=== PATIENT | female | born 1955 | race Caucasian/White ===

== ENCOUNTER 2022-10-22 09:47 | Emergency (ER) | payer MEDICARE, SELFPAY ==
[2022-10-22 09:53] VITALS: BP 144/85; PULSE 94; RESP 20; TEMP 37.1; O2SAT 97; BMI 25.4
--- NOTE | 2022-10-22 10:26 | XR_ITS ---
WS: [id number] KUB, AP view, 10/22/2022 Clinical Data: RLQ pain Comparison: None. Findings: The liver may be enlarged. There is a right abdominal soft tissue mass compressing the ascending colo n. No bowel obstruction is seen. There are calcifications in the true pelvis which may be uterine leiomy clemencia. There is a large amount of fecal material in the colon. Impression: 1. Right abdominal mass which may represent liver enlargement. 2. Pelvic calcifications which may be uterine leiomyomas.
--- NOTE | 2022-10-22 10:35 | ED_ITS ---
Documented by User: Cristel Montalvo PA-C 10/22/22 17:09 HPI - Abdominal Pain General: Chief Complaint: Abdominal Pain Stated Complaint: abd pain Time Seen by Provider: 10/22/22 10:21 Source: patient Mode of arrival: ambulatory Limitations: no limitations History of Present Illness: 67-year-old female with a history of hypertension presents to the ER today for right-sided abdominal pain x2 months. Patient reports this significantly worsened over the last several days. Patient was seen by her PCP and they ordered an ultrasound however it has not been scheduled yet. Patient has not had any recent lab work done. Patient does report a history of some chronic kidney disease however reports she was last told that it had significantly improved and was at greater than 50%. Patient reports this abdominal pain is located in the right mid to lower quadrant of the abdomen. She reports it is a stabbing, sharp pain that then radiates into the umbilicus. Patient has never had any abdominal surgeries. She reports she has a history of 1 vaginal delivery and 1 miscarriage but no other abdominal or female issues. Patient reports she has not had a Pap in the last 5 years. Patient denies any fever or chills. She reports some nausea but no vomiting. Patient has not taken anything for pain at this time. She reports she is somewhat constipated however that is chronic for her. Denies any blood in her stool. She did take some mineral oil this morning. Review of Systems General: Reports: 10 or more systems reviewed and unremarkable except in HPI and below Physical Exam Const: COMMON NORMALS: average body habitus, patient oriented x3, no limitations, healthy appearing, alert and well nourished HENMT: COMMON NORMALS: normocephalic, atraumatic, external ears normal, Normal nasal mucous membranes and turbinates present and moist oral mucous membranes HEAD & SCALP: normocephalic and atraumatic NOSE: Normal nasal mucous membranes and turbinates present EXTERNAL EAR: Yes external ears normal Eye: COMMON NORMALS: conjunctivae normal CONJUNCTIVA: Yes conjunctivae normal Resp: COMMON NORMALS: normal respiratory effort, No retractions and clear to auscultation bilaterally AUSCULTATION: clear to auscultation bilaterally Cardio: COMMON NORMALS: regular rate, regular rhythm and No murmurs present (Cardio) RATE: regular rate RHYTHM: regular rhythm GI: COMMON NORMALS: Normal to inspection, nondistended, normoactive bowel sounds present, Soft to palpation and No hepatosplenomegaly present PALPATION: Yes Soft to palpation, Yes Tenderness to palpation present (GI) Details: RLQ and RUQ, Yes Guarding due to palpation present (GI) in the RLQ, Yes No hepatosplenomegaly present and No Ascites present : COMMON NORMALS: Yes no CVA tenderness BLADDER/KIDNEY EXAM: Yes no CVA tenderness Back/Pelvis: COMMON NORMALS: no CVA tenderness Extremity: COMMON NORMALS: full ROM and no pedal edema Neuro: COMMON NORMALS: patient oriented x3 SENSORIUM/ORIENTATION: Yes alert Psych: COMMON NORMALS: mental status grossly normal, Normal thought process present and cooperative THOUGHT PROCESS: Normal thought process present Skin: COMMON NORMALS: no rashes or lesions noted GENERAL SKIN EXAM: no rashes or lesions noted Course ED course: Patient presents to the ER today for worsening right lower quadrant abdominal pain for the last 3 days. Patient reports this is been going on for about 2 months. She has seen her PCP and imaging has been ordered but not scheduled. Patient reports over the last 3 days the pain worsened and has become pretty significant. Currently it is located in the right abdomen and when moved or pressed on it is a sharp pain radiating to the umbilicus. On exam patient is noted to have significant tenderness in both the right upper and right lower quadrants. She does have a history of constipation which is chronic. She took some mineral oil this morning. No blood in her bowel movements. We will get labs in addition to a UA. We will start with a KUB however I suspect we will need a CT. We need to get results of her labs back before completing the CT due to a history of possible chronic kidney disease per patient. Reevaluation(s): Reevaluation #1: Discussed findings with patient. Patient prefers to go to [facility] in [place]. Time: 13:05 Consultations: Consultation #1: Spoke with Dr. Diaz who is concerned with CT findings of a very large enhancing tumor of the right kidney. This extends almost to the UPJ area and ureter appears compressed. Suspects a TCC carcinoma. Also IVC compressed with possible thrombosed renal vein. Recommends nephrology consult for possible nephrectomy. Time: 13:05 Consultation #2: [facility] call back and they feel patient needs a higher level of care than they can provide. We will attempt [facility] as patient does not want to go to [facility] if she can help it. Time: 13:27 Consultation #3: [facility] declined and recommended higher level of care. [facility] was contacted but does not have beds. [facility] was then contacted and we are still waiting to hear back for acceptance there. Patient has been kept in the know during this process. Though she does not want to go to [facility] she understands the necessity. Time: 16:41 Additional Consultation(s): Patient was excepted by Dr. Robles at [facility]. Patient will be transferred by ground at this time. Vital Signs: Vital signs: Vital Signs Temperature 98.7 F 10/22/22 09:53 Pulse Rate 89 10/22/22 17:09 Respiratory Rate 16 10/22/22 17:09 Blood Pressure 125/66 10/22/22 17:09 Pulse Oximetry 97 10/22/22 17:09 Oxygen Delivery Me thod Room Air 10/22/22 17:09 MDM - Abdominal Pain Medical Decision Making Patient presented for right-sided abdominal pain. On exam it was noted patient had what felt like a mass in the right side of her abdomen. Lab work was mostly unremarkable other than slightly elevated creatinine and blood in the urine. On CT patient was found to have a large enhancing tumor/cystic right kidney. I spoke with Dr. Diaz who reports that the tumor is so large it goes to the UPJ and compresses the ureter. Patient has significant hydroureter that appears to be due to long-term obstruction. It appears patient's IVC is compressed and a possible thrombosis noted in the renal vein. He recommended probable nephrectomy given the severity of this. I discussed findings with patient who preferred to go to [place] however as you can see in the note previously, [facility] both [facility] and [facility] declined due to patient needing a higher level of care. Patient's pain has remained stable here. She has not requested anything for pain at this time. Patient was accepted by Dr. Robles at [facility]. She will be chun sferred at this time. Lab Data 10/22/22 10:19 10/22/22 10:19 Labs/Radiology: Laboratory Results WBC 10.75 10^3/uL (3.29-11.43) 10/22/22 10:19 RBC 4.99 10^6/uL (3.85-5.65) 10/22/22 10:19 Hgb 13.30 g/dL (11.27-16.99) 10/22/22 10:19 Hct 41.4 % (36-47) 10/22/22 10:19 MCV 83.0 fl (85-98) L 10/22/22 10:19 MCH 26.7 pg (27-33) L 10/22/22 10:19 MCHC 32.1 g/dL (30-55) 10/22/22 10:19 RDW 13.8 % (12.1-15.1) 10/22/22 10:19 Plt Count 409 10^3/cmm (157-399) H 10/22/22 10:19 MPV 8.9 fL (7.4-10.4) 10/22/22 10:19 Neut % (Auto) 76.1 % 10/22/22 10:19 Lymph % (Auto) 14.2 % 10/22/22 10:19 Hughes % (Auto) 8.8 % 10/22/22 10:19 Eos % (Auto) 0.4 % 10/22/22 10:19 Baso % (Auto) 0.3 % 10/22/22 10:19 Neut # (Auto) 8.18 10^3/uL (1.8-7.7) H 10/22/22 10:19 Lymph # (Auto) 1.5 10^3/uL (0.8-4.8) 10/22/22 10:19 Hughes # (Auto) 1.0 10^3/uL (0.2-0.9) H 10/22/22 10:19 Eos # (Auto) 0.0 10^3/uL (0.0-0.8) 10/22/22 10:19 Baso # (Auto) 0.0 10^3/uL (0.0-0.1) 10/22/22 10:19 Nucleated RBC % (auto) 0 % 10/22/22 10:19 Nucleated RBCs # 0.0 /100WBC 10/22/22 10:19 Sodium 134 mmol/L (136-145) L 10/22/22 10:19 Potassium 4.2 mmol/L (3.5-5.1) 10/22/22 10:19 Chloride 98 mmol/L (98-107) 10/22/22 10:19 Carbon Dioxide 22 mmol/L (22-29) 10/22/22 10:19 Anion Gap 18.3 (5-19) 10/22/22 10:19 BUN 19 mg/dL (8-23) 10/22/22 10:19 Creatinine 1.0 mg/dL (0.5-0.9) H 10/22/22 10:19 GFR Calculation 55.1 mL/min (90-130) L 10/22/22 10:19 Glucose 102 mg/dL (65-115) 10/22/22 10:19 Calculated Osmolality 280 mOsm/kg (285-295) L 10/22/22 10:19 Lactic Acid 1.0 mmol/L (0.5-2.2) 10/22/22 10:19 Calcium 9.7 mg/dL (8.5-10.5) 10/22/22 10:19 Total Bilirubin 0.7 mg/dL (0.15-1.2) 10/22/22 10:19 AST 13 U/L (0-32) 10/22/22 10:19 ALT 7 U/L (0-33) 10/22/22 10:19 Alkaline Phosphatase 67 U/L (35-105) 10/22/22 10:19 Total Protein 8.0 g/dL (6.6-8.7) 10/22/22 10:19 Albumin 4.5 g/dL (3.5-5.2) 10/22/22 10:19 Globulin 3.5 g/dL (1.3-4.6) 10/22/22 10:19 Urine Color Yellow (Yellow) 10/22/22 10:04 Urine Appearance Cloudy (CLEAR) A 10/22/22 10:04 Urine pH 5 (5-7) 10/22/22 10:04 Ur Specific Sharon 1.020 (1.005-1.030) 10/22/22 10:04 Urine Protein 1+ (Negative) H 10/22/22 10:04 Urine Glucose (UA) Norm (Normal) 10/22/22 10:04 Urine Ketones 2+ (Negative) H 10/22/22 10:04 Urine Blood 3+ (Negative) H 10/22/22 10:04 Urine Nitrate Negative (Negative) 10/22/22 10:04 Urine Bilirubin Neg (Negative) 10/22/22 10:04 Urine Urobilinogen Norm mg/dL (Negative) 10/22/22 10:04 Ur Leukocyte Esterase Trace (Negative) H 10/22/22 10:04 Urine RBC Too numerous to cnt /hpf (0-2) H 10/22/22 10:04 Urine WBC 0-4 /hpf (0-5) H 10/22/22 10:04 Ur Squamous Epith Cells 0-4 /hpf (0-5) H 10/22/22 10:04 Amorphous Sediment Not Reportable 10/22/22 10:04 Urine Bacteria Trace /hpf (NONE) 10/22/22 10:04 Critical Care Time Critical Care Time: Critical Care Time: No Discharge Plan Discharge Patient Disposition: [facility]fer to [facility] or [facility] Clinical Impression: Mass of right kidney, Thrombosis of right renal vein, Hydroureter on right, Right sided abdominal pain Hematuria Qualifiers: Hematuria type: gross Qualified Code(s): R31.0 - Gross hematuria Condition: Stable Referrals: Margarito,ABNER Amaya [Primary Care Provider] - Patient Instructions: Abdominal Pain (ED) Activity Restrictions/Additional Instructions: Transfer to [facility] for nephrectomy and further work up. Sign Out Sign Out Data: Sign Out Comment: waiting for [facility] to call back for acceptance/transfer Last updated by Cristel Montalvo PA-C at 10/22/22 16:45 Coding Level of Care Code ED Integrated Logistics Operations Manager for Chg Fwd Documented by User: Everton Shearer DO 10/22/22 17:14 HPI - Abdominal Pain General: Chief Complaint: Abdominal Pain Stated Complaint: abd pain Time Seen by Provider: 10/22/22 10:21 Course Vital Signs: Vital signs: Vital Signs Temperature 98.7 F 10/22/22 09:53 Pulse Rate 89 10/22/22 17:09 Respiratory Rate 16 10/22/22 17:09 Blood Pressure 125/66 10/22/22 17:09 Pulse Oximetry 97 10/22/22 17:09 Oxygen Delivery Me thod Room Air 10/22/22 17:09 MDM - Abdominal Pain Medical Decision Making Patient presented for right-sided abdominal pain. On exam it was noted patient had what felt like a mass in the right side of her abdomen. Lab work was mostly unremarkable other than slightly elevated creatinine and blood in the urine. On CT patient was found to have a large enhancing tumor/cystic right kidney. I spoke with Dr. Diaz who reports that the tumor is so large it goes to the UPJ and compresses the ureter. Patient has significant hydroureter that appears to be due to long-term obstruction. It appears patient's IVC is compressed and a possible thrombosis noted in the renal vein. He recommended probable nephrectomy given the severity of this. I discussed findings with patient who preferred to go to [place] however as you can see in the note previously, [place] both [facility] and [facility] declined due to patient needing a higher level of care. Patient's pain has remained stable here. She has not requested anything for pain at this time. Patient was accepted by Dr. Robles at [facility]. She will be transferred at this time. Chart reviewed and patient discussed with midlevel. Agree with assessment and plan. Lab Data 10/22/22 10:19 10/22/22 10:19 Labs/Radiology: Laboratory Results WBC 10.75 10^3/uL (3.29-11.43) 10/22/22 10:19 RBC 4.99 10^6/uL (3.85-5.65) 10/22/22 10:19 Hgb 13.30 g/dL (11.27-16.99) 10/22/22 10:19 Hct 41.4 % (36-47) 10/22/22 10:19 MCV 83.0 fl (85-98) L 10/22/22 10:19 MCH 26.7 pg (27-33) L 10/22/22 10:19 MCHC 32.1 g/dL (30-55) 10/22/22 10:19 RDW 13.8 % (12.1-15.1) 10/22/22 10:19 Plt Count 409 10^3/cmm (157-399) H 10/22/22 10:19 MPV 8.9 fL (7.4-10.4) 10/22/22 10:19 Neut % (Auto) 76.1 % 10/22/22 10:19 Lymph % (Auto) 14.2 % 10/22/22 10:19 Hughes % (Auto) 8.8 % 10/22/22 10:19 Eos % (Auto) 0.4 % 10/22/22 10:19 Baso % (Auto) 0.3 % 10/22/22 10:19 Neut # (Auto) 8.18 10^3/uL (1.8-7.7) H 10/22/22 10:19 Lymph # (Auto) 1.5 10^3/uL (0.8-4.8) 10/22/22 10:19 Hughes # (Auto) 1.0 10^3/uL (0.2-0.9) H 10/22/22 10:19 Eos # (Auto) 0.0 10^3/uL (0.0-0.8) 10/22/22 10:19 Baso # (Auto) 0.0 10^3/uL (0.0-0.1) 10/22/22 10:19 Nucleated RBC % (auto) 0 % 10/22/22 10:19 Nucleated RBCs # 0.0 /100WBC 10/22/22 10:19 Sodium 134 mmol/L (136-145) L 10/22/22 10:19 Potassium 4.2 mmol/L (3.5-5.1) 10/22/22 10:19 Chloride 98 mmol/L (98-107) 10/22/22 10:19 Carbon Dioxide 22 mmol/L (22-29) 10/22/22 10:19 Anion Gap 18.3 (5-19) 10/22/22 10:19 BUN 19 mg/dL (8-23) 10/22/22 10:19 Creatinine 1.0 mg/dL (0.5-0.9) H 10/22/22 10:19 GFR Calculation 55.1 mL/min (90-130) L 10/22/22 10:19 Glucose 102 mg/dL (65-115) 10/22/22 10:19 Calculated Osmolality 280 mOsm/kg (285-295) L 10/22/22 10:19 Lactic Acid 1.0 mmol/L (0.5-2.2) 10/22/22 10:19 Calcium 9.7 mg/dL (8.5-10.5) 10/22/22 10:19 Total Bilirubin 0.7 mg/dL (0.15-1.2) 10/22/22 10:19 AST 13 U/L (0-32) 10/22/22 10:19 ALT 7 U/L (0-33) 10/22/22 10:19 Alkaline Phosphatase 67 U/L (35-105) 10/22/22 10:19 Total Protein 8.0 g/dL (6.6-8.7) 10/22/22 10:19 Albumin 4.5 g/dL (3.5-5.2) 10/22/22 10:19 Globulin 3.5 g/dL (1.3-4.6) 10/22/22 10:19 Urine Color Yellow (Yellow) 10/22/22 10:04 Urine Appearance Cloudy (CLEAR) A 10/22/22 10:04 Urine pH 5 (5-7) 10/22/22 10:04 Ur Specific Sharon 1.020 (1.005-1.030) 10/22/22 10:04 Urine Protein 1+ (Negative) H 10/22/22 10:04 Urine Glucose (UA) Norm (Normal) 10/22/22 10:04 Urine Ketones 2+ (Negative) H 10/22/22 10:04 Urine Blood 3+ (Negative) H 10/22/22 10:04 Urine Nitrate Negative (Negative) 10/22/22 10:04 Urine Bilirubin Neg (Negative) 10/22/22 10:04 Urine Urobilinogen Norm mg/dL (Negative) 10/22/22 10:04 Ur Leukocyte Esterase Trace (Negative) H 10/22/22 10:04 Urine RBC Too numerous to cnt /hpf (0-2) H 10/22/22 10:04 Urine WBC 0-4 /hpf (0-5) H 10/22/22 10:04 Ur Squamous Epith Cells 0-4 /hpf (0-5) H 10/22/22 10:04 Amorphous Sediment Not Reportable 10/22/22 10:04 Urine Bacteria Trace /hpf (NONE) 10/22/22 10:04 Discharge Plan Discharge Patient Disposition: Xfer to [facility] Center or [facility] Clinical Impression: Mass of right kidney, Thrombosis of right renal vein, Hydroureter on right, Right sided abdominal pain Hematuria Qualifiers: Hematuria type: gross Qualified Code(s): R31.0 - Gross hematuria Condition: Stable Referrals: Margarito,ABNER Amaya [Primary Care Provider] - Patient Instructions: Abdominal Pain (ED) Activity Restrictions/Additional Instructions: Transfer to [facility] for nephrectomy and further work up. Sign Out Sign Out Data: Sign Out Comment: waiting for [facility] to call back for acceptance/transfer Last updated by Cristel Montalvo PA-C at 10/22/22 16:45 Coding Level of Care Code ED Integrated Logistics Operations Manager for Gerardo Barba
[2022-10-22 10:37] LABS: Basophils % 0.3 %; Eosinophils % 0.4 %; Hematocrit 41.4 % (36-47); Lymphocytes # 1.5 10^3/uL (0.8-4.8); Lymphocytes % 14.2 %; Mean Corpuscular HGB Conc 32.1 g/dL (30-55); Mean Corpuscular Hemoglobin 26.7 pg (27-33); Mean Platelet Volume 8.9 fL (7.4-10.4); Monocytes % 8.8 %; Neutrophils # 8.18 10^3/uL (1.8-7.7); Neutrophils % 76.1 %; Nucleated Red Blood Cells % 0 %; Platelet Count 409 10^3/cmm (157-399); Red Blood Count 4.99 10^6/uL (3.85-5.65); Red Cell Distribution Width 13.8 % (12.1-15.1); White Blood Count 10.75 10^3/uL (3.29-11.43)
--- NOTE | 2022-10-22 10:41 | CT_ITS ---
WS: [id number] CT ABDOMEN PELVIS TECHNIQUE: Contrast-enhanced CT of the abdomen and pelvis with coronal and sagittal reformatted image s. CLINICAL INFORMATION: RLQ pain COMPARISON: None. DLP: 551.[address] scans at [facility] use at least one of these dose optimization techniques: automated e xposure control; mA and/or kV adjustment per patient size (includes targeted exams where dose is matc hed to clinical indication); or iterative reconstruction. FINDINGS: Lobulated enlarged RIGHT kidney with peripheral heterogeneous enhancement and a small amount of surro unding induration. Enhancing soft tissue suspicious for neoplasm within the RIGHT renal pelvis and UP J extending into the proximal ureter. UPJ is dilated to approximately 2 cm. Mid and distal RIGHT uret er distal to the suspected obstructing tumor not visualized. Findings suspicious for a transitional c ell carcinoma with longstanding obstruction and hydronephrosis. A few adjacent enlarged aortocaval no michael with enhancement measuring up to 1.5 cm. Suspected partial obstruction of the RIGHT renal vein wh ich is poorly visualized. Suggestion of a tiny remnant best seen on the coronal imaging along the sup erior margin. Bladder appears normal in appearance. Delayed imaging not performed. Bladder would be better evaluate d with cystoscopy. Large calcified uterine fibroids. Normal LEFT renal parenchymal enhancement. No hy dronephrosis in the LEFT kidney. LEFT ureter is decompressed. Lung bases are well aerated. Mild diffuse fatty filtration of the liver. Portal vein and splenic vein are patent. SMV is patent. Normal pancreatic parenchymal enhancement. Adrenal glands are normal. Nor mal caliber abdominal aorta. Aortic calcification. RIGHT renal mass compresses the adjacent IVC. Sigmoid diverticulosis. Normal appendix in the RIGHT lo wer quadrant. No pelvic or inguinal lymphadenopathy. Normal lumbar spine. IMPRESSION: 1. Multilobulated obstructed RIGHT kidney with suspected obstructing tumor within the distal RIGHT r enal pelvis extending into the UPJ and proximal ureter suspicious for TCC. Lobulated RIGHT kidney lik francisco due to longstanding obstruction with hydronephrosis. Recommend urology consultation. Invasive srikanth al cell carcinoma and lymphoma are additional considerations. 2. Adjacent suspicious enhancing enlarged lymph nodes aortocaval the largest measuring 1.5 cm. 3. Suspected thrombosis of the RIGHT renal vein which is poorly visualized. 4. Lobulated RIGHT renal mass compresses the IVC. 5. Calcified uterine fibroids. 6. Visualized bladder appears normal. Notified Cristel Montalvo PA-C at 10/22/2022 12:55 PM.
[2022-10-22 10:44] LABS: Alanine Aminotransferase 7 U/L (0-33); Albumin Level 4.5 g/dL (3.5-5.2); Alkaline Phosphatase 67 U/L (35-105); Potassium 4.2 mmol/L (3.5-5.1)
[2022-10-22 10:48] LABS: Anion Gap 18.3 (5-19); Aspartate Amino Transferase 13 U/L (0-32); Blood Urea Nitrogen 19 mg/dL (8-23); Calcium 9.7 mg/dL (8.5-10.5); Carbon Dioxide 22 mmol/L (22-29); Chloride 98 mmol/L (98-107); Globulin 3.5 g/dL (1.3-4.6); Glomerular Filtration Rate 55.1 mL/min (90-130); Glucose 102 mg/dL (65-115); Osmolality Calculated 280 mOsm/kg (285-295); Sodium 134 mmol/L (136-145); Total Bilirubin 0.7 mg/dL (0.15-1.2)
[2022-10-22 10:50] LABS: Add Urine Microscopic? YES; Bilirubin Urine Neg (Negative); Blood Urine 3+ (Negative); Glucose Urine UA Norm (Normal); Ketones Urine 2+ (Negative); Leukocyte Esterase Urine Trace (Negative); Nitrate Urine Negative (Negative); Protein Urine 1+ (Negative); Urine Appearance Cloudy (CLEAR); Urine Color Yellow (Yellow); Urobilinogen Urine Norm (Negative); pH Urine 5 (5-7)
[2022-10-22 10:51] VITALS: BP 133/85; PULSE 68; RESP 14; O2SAT 94
[2022-10-22 10:51] LABS: Add Urine Culture? Yes; Bacteria Urine TRACE /hpf; RBC Urine TOO NUMEROUS TO CNT /hpf (0-2); Squamous Epithelial Cell Urine 0-4 /hpf (0-5); WBC Urine 0-4 /hpf (0-5)
[2022-10-22] MEDS: iohexol 350 mg/mL 500 mL Btl (per mL) IV (12:06)
[2022-10-22 12:39] VITALS: BP 150/83; PULSE 71; RESP 17; O2SAT 96
[2022-10-22] MEDS: nicotine 21 mg Patch 1 PATCH TRANSDERMA (14:32)
[2022-10-22 14:38] VITALS: BP 138/97; PULSE 94; RESP 17; O2SAT 96
[2022-10-22 17:09] VITALS: BP 125/66; PULSE 89; RESP 16; O2SAT 97
[2022-10-22] MEDS: hyDROXYzine 25 mg Capsule 50 MG PO (18:14)
== END 2022-10-22 20:43 | disposition designated cancer center or children's hospital (05) ==
PROVIDERS: Physician Assistant; Emergency Provider Nurse Practitioner Family; PCP Nurse Practitioner Family
DX: N28.89 Other specified disorders of kidney and ureter (principal); I82.3 Embolism and thrombosis of renal vein; N13.4 Hydroureter; R31.0 Gross hematuria
CPT/HCPCS: 74018; 74177; 80053; 81001; 83605; 85025; 87086; 99285; Q9967

== ENCOUNTER 2022-12-07 19:30 | Emergency (ER) | payer MEDICARE, SELFPAY ==
[2022-12-07 19:36] VITALS: BP 176/101; PULSE 95; RESP 16; TEMP 36.8; O2SAT 97; BMI 25.1
--- NOTE | 2022-12-07 19:41 | XRR_ITS ---
PROCEDURE INFORMATION: Exam: XR Abdomen Exam date and time: 12/07/2022 7:59 PM Age: 67 years old Clinical indication: Abdominal pain; Acute; Prior surgery; Surgery date: 3-7 days post-operative; Surgery type: RT kidney removed; Additional info: Constipation TECHNIQUE: Imaging protocol: Radiologic exam of the abdomen. Views: Frontal supine view of the abdomen. 1 View. COMPARISON: CT abdomen pelvis w con* [id number] 10/22/2022 11:59 AM FINDINGS: Gastrointestinal tract: Moderate colonic stool burden. No bowel dilation. Bones/joints: Unremarkable. XR/XR KUB portable [id number] IMPRESSION: Moderate colonic stool burden.
--- NOTE | 2022-12-07 19:51 | W.ED.GENADLT ---
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 She had removed a monitor states she had issues with constipation before but since the surgery she states she has been having severe constipation. She states she has been on oxycodone is taken some stool softeners has not taken any laxatives. States that she feels backed up having abdominal fullness she has had no vomiting no fevers. Associated symptoms: Deny chest pain, dyspnea, headache(s), nausea, rash or vomiting Review of Systems Const: Denies: fever(s), chills, body aches or change in appetite Eyes: Denies: blurry vision or eye discomfort ENMT: Denies: throat pain or dental pain Card: Denies: chest pain Resp: Denies: dyspnea GI: Reports: constipation; Denies: abdominal pain, nausea, vomiting or diarrhea : Denies: dysuria Musc: Denies: neck pain or back pain Skin/Breast: Denies: rash Neuro: Denies: headache(s) Psych: Denies: depression Dm/Lymph: Denies: easy bruising All/Imm: Denies: urticaria Physical Exam Const: COMMON NORMALS: no acute distress, patient oriented x3 and healthy appearing HENMT: COMMON NORMALS: normocephalic and atraumatic HEAD & SCALP: normocephalic and atraumatic Eye: COMMON NORMALS: Equal, round and reactive pupils present and EOMs intact bilaterally PUPIL: Yes Equal, round and reactive pupils present Neck/C-Spine: COMMON NORMALS: full ROM and supple Chest: COMMONS NORMALS: normal inspection of the chest and normal palpation of entire chest wall Resp: COMMON NORMALS: normal respiratory effort, No retractions, No use of accessory muscles and clear to auscultation bilaterally AUSCULTATION: clear to auscultation bilaterally Cardio: COMMON NORMALS: regular rate, regular rhythm and No murmurs present (Cardio) RATE: regular rate RHYTHM: regular rhythm GI: COMMON NORMALS: Normal to inspection, nondistended, normoactive bowel sounds present, Soft to palpation, non-tender and no masses PALPATION: Yes Soft to palpation Extremity: COMMON NORMALS: normal to inspection and full ROM Neuro: COMMON NORMALS: patient oriented x3, moves all extremities and no focal motor deficits Psych: COMMON NORMALS: mental status grossly normal, Normal thought process present and cooperative THOUGHT PROCESS: Normal thought process present Skin: COMMON NORMALS: no rashes or lesions noted and no wounds GENERAL SKIN EXAM: no rashes or lesions noted Course Vital Signs: Vital signs: Vital Signs Temperature 98.3 F 12/07/22 19:36 Pulse Rate 86 12/07/22 20:01 Respiratory Rate 16 12/07/22 20:01 Blood Pressure 186/90 12/07/22 20:01 Pulse Oximetry 98 12/07/22 20:01 Oxygen Delivery Me thod Room Air 12/07/22 20:01 MDM - General Adult Medical Decision Making Patient presents with constipation she has no signs of bowel obstruction abdominal exam here is benign did give her lactulose in the ER we will prescribe her MiraLAX she is stable for discharge she is to follow-up with her surgeon return if worsening she understands agrees to plan. Medical Records I reviewed the patient's medical records. Lab Data I reviewed the patient's lab results. 12/07/22 19:55 12/07/22 19:55 Radiology Impressions KUB X-Ray 12/07/22 19:41 IMPRESSION: Moderate colonic stool burden. Laboratory Results WBC 4.01 10^3/uL (3.29-11.43) 12/07/22 19:55 RBC 3.59 10^6/uL (3.85-5.65) L 12/07/22 19:55 Hgb 9.50 g/dL (11.27-16.99) L 12/07/22 19:55 Hct 29.6 % (36-47) L 12/07/22 19:55 MCV 82.5 fl (85-98) L 12/07/22 19:55 MCH 26.5 pg (27-33) L 12/07/22 19:55 MCHC 32.1 g/dL (30-55) 12/07/22 19:55 RDW 14.6 % (12.1-15.1) 12/07/22 19:55 Plt Count 385 10^3/cmm (157-399) 12/07/22 19:55 MPV 8.5 fL (7.4-10.4) 12/07/22 19:55 Neut % (Auto) 65.1 % 12/07/22 19:55 Lymph % (Auto) 22.2 % 12/07/22 19:55 [place] % (Auto) 9.0 % 12/07/22 19:55 Eos % (Auto) 3.0 % 12/07/22 19:55 Baso % (Auto) 0.5 % 12/07/22 19:55 Neut # (Auto) 2.61 10^3/uL (1.8-7.7) 12/07/22 19:55 Lymph # (Auto) 0.9 10^3/uL (0.8-4.8) 12/07/22 19:55 [place] # (Auto) 0.4 10^3/uL (0.2-0.9) 12/07/22 19:55 Eos # (Auto) 0.1 10^3/uL (0.0-0.8) 12/07/22 19:55 Baso # (Auto) 0.0 10^3/uL (0.0-0.1) 12/07/22 19:55 Nucleated RBC % (auto) 0 % 12/07/22 19:55 Nucleated RBCs # 0.0 /100WBC 12/07/22 19:55 Sodium 134 mmol/L (136-145) L 12/07/22 19:55 Potassium 4.2 mmol/L (3.5-5.1) 12/07/22 19:55 Chloride 99 mmol/L (98-107) 12/07/22 19:55 Carbon Dioxide 22 mmol/L (22-29) 12/07/22 19:55 Anion Gap 17.2 (5-19) 12/07/22 19:55 BUN 11 mg/dL (8-23) 12/07/22 19:55 Creatinine 0.8 mg/dL (0.5-0.9) 12/07/22 19:55 GFR Calculation 71.3 mL/min (90-130) L 12/07/22 19:55 Glucose 99 mg/dL (65-115) 12/07/22 19:55 Calculated Osmolality 277 mOsm/kg (285-295) L 12/07/22 19:55 Calcium 9.3 mg/dL (8.5-10.5) 12/07/22 19:55 Total Bilirubin 0.3 mg/dL (0.15-1.2) 12/07/22 19:55 AST 54 U/L (0-32) H 12/07/22 19:55 ALT 55 U/L (0-33) H 12/07/22 19:55 Alkaline Phosphatase 158 U/L (35-105) H 12/07/22 19:55 Total Protein 6.8 g/dL (6.6-8.7) 12/07/22 19:55 Albumin 3.6 g/dL (3.5-5.2) 12/07/22 19:55 Globulin 3.2 g/dL (1.3-4.6) 12/07/22 19:55 Lipase 12 U/L (13-60) L 12/07/22 19:55 All radiology interpretation(s) finalized by discharge Discharge Plan Discharge Patient Disposition: Home Clinical Impression: Constipation Condition: Stable Prescriptions: New Miralax 17 gram powder in packet 17 g PO BID PRN (Reason: constipation) Qty: 14 0RF hydrocodone-acetaminophen 5-325 mg tablet 1 tab PO Q6H PRN (Reason: pain) Qty: 14 0RF No Action lisinopril 10 mg tablet 10 mg PO DAILY Probiotic Acidophilus 1.5 mg (250 million cell) Capsule 5,000 mmu cells PO DAILY Discharge Orders: Discharge ED (Routine); Ordered 12/07/22 Ordered By: Damaso Brush Referrals: Pimentel,ATUL AmayaP [Primary Care Provider] - 1-3 days Discharge Diet: Advance as tolerated Discharge Activity: Resume usual activity Patient Instructions: Constipation (ED) Coding Level of Care Code ED Awning Installer for Robertg Jameson
[2022-12-07 20:01] VITALS: BP 186/90; PULSE 86; RESP 16; O2SAT 98
[2022-12-07 20:03] LABS: Basophils % 0.5 %; Eosinophils # 0.1 10^3/uL (0.0-0.8); Hematocrit 29.6 % (36-47); Lymphocytes # 0.9 10^3/uL (0.8-4.8); Lymphocytes % 22.2 %; Mean Corpuscular HGB Conc 32.1 g/dL (30-55); Mean Corpuscular Hemoglobin 26.5 pg (27-33); Mean Corpuscular Volume 82.5 fl (85-98); Mean Platelet Volume 8.5 fL (7.4-10.4); Monocytes # 0.4 10^3/uL (0.2-0.9); Neutrophils # 2.61 10^3/uL (1.8-7.7); Neutrophils % 65.1 %; Nucleated Red Blood Cells % 0 %; Platelet Count 385 10^3/cmm (157-399); Red Blood Count 3.59 10^6/uL (3.85-5.65); Red Cell Distribution Width 14.6 % (12.1-15.1); White Blood Count 4.01 10^3/uL (3.29-11.43)
[2022-12-07 20:20] LABS: Alanine Aminotransferase 55 U/L (0-33); Albumin Level 3.6 g/dL (3.5-5.2); Alkaline Phosphatase 158 U/L (35-105); Anion Gap 17.2 (5-19); Aspartate Amino Transferase 54 U/L (0-32); Blood Urea Nitrogen 11 mg/dL (8-23); Calcium 9.3 mg/dL (8.5-10.5); Carbon Dioxide 22 mmol/L (22-29); Chloride 99 mmol/L (98-107); Globulin 3.2 g/dL (1.3-4.6); Glomerular Filtration Rate 71.3 mL/min (90-130); Glucose 99 mg/dL (65-115); Lipase 12 U/L (13-60); Osmolality Calculated 277 mOsm/kg (285-295); Potassium 4.2 mmol/L (3.5-5.1); Sodium 134 mmol/L (136-145); Total Bilirubin 0.3 mg/dL (0.15-1.2); Total Protein 6.8 g/dL (6.6-8.7)
[2022-12-07] MEDS: lactulose oral liq 20 gm/30 mL UDC 30 GM PO (20:28)
[2022-12-07 20:44] VITALS: BP 175/91; PULSE 89; RESP 16; O2SAT 98
== END 2022-12-07 20:45 | disposition home or self-care (01) ==
PROVIDERS: Emergency Provider Emergency Medicine; PCP Nurse Practitioner Family
DX: K59.00 Constipation, unspecified (principal); Z85.528 Personal history of other malignant neoplasm of kidney; Z90.5 Acquired absence of kidney
CPT/HCPCS: 36415; 74018; 80053; 83690; 85025; 99284

== ENCOUNTER 2023-05-27 09:12 | Outpatient (CLI) | payer MEDICARE, SELFPAY ==
--- NOTE | 2023-05-27 09:16 | US_ITS ---
WS: [id number] ULTRASOUND SOFT TISSUES LEFT elbow and LEFT thumb. HISTORY: LOCALIZED SWELLING,MASS LUMP/2 NODULES ON L ELBOW COMPARISON: None available. TECHNIQUE: 2-D and color Doppler imaging is submitted. Ill-defined soft tissue nodule associated with the LEFT elbow as indicated by the patient. Nodule is ill-defined measuring 3.0 x 1.2 cm. There is no increased vascularity. This is a predominantly solid nodule. There is an additional soft tissue nodule without increased vascularity in the region of the thumb as indicated by the patient. This nodule measures 1.2 x 1.2 cm. IMPRESSION: Solid nodule associated with the LEFT elbow in the LEFT thumb. With history of rheumatoid these are p robably rheumatoid nodules. These are very nonspecific by ultrasound.
--- NOTE | 2023-05-27 09:16 | CT_ITS ---
WS: [id number] LDCT LUNG CANCER SCREENING HISTORY: HX OF NICOTINE DEPENDENCE TECHNIQUE: Axial imaging performed from the apices to 1 cm below the costophrenic angles. Coronal and sagittal reformats are submitted with axial MIP series. All CT scans at [facility] use at least one of these dose optimization techniques: automated exposure control; mA and/or kV adjustment per patient size (includes targeted exams where dose is matched to clinical indication); or iterativ e reconstruction. DLP: 58.77 mGy.cm DIvol: Mean CTDIvol: 0.90 (mGy) COMPARISON: None available. Diagnostic quality: Satisfactory Lungs: Mild pulmonary hyperexpansion. 4 mm noncalcified nodule LEFT upper lobe. No additional nodule or mass. There are a few granuloma which are calcified. No pneumonia. No endobronchial lesions. Heart: Normal size heart with no pericardial effusion.. Other findings: No adenopathy. Mild atherosclerosis aorta. No adrenal mass. IMPRESSION: CT/CT lung screening [id number] LUNG-RADS: 2-Benign Appearance or Behavior FOLLOW UP: 12 Month: Continue annual screening with LDCT OTHER FINDINGS (S MODIFIER): None.
== END 2023-05-27 09:13 | disposition home or self-care (01) ==
LOC: RAD 09:12
PROVIDERS: PCP Nurse Practitioner Family; Visit Provider Nurse Practitioner Family
DX: Z13.83 Encounter for screening for respiratory disorder NEC (principal); R91.1 Solitary pulmonary nodule; M25.822 Other specified joint disorders, left elbow; Z87.891 Personal history of nicotine dependence
CPT/HCPCS: 71271; 76882

== ENCOUNTER → 2023-06-20 09:47 | Outpatient (BNVA) | payer MEDICARE, SELFPAY | PROVIDERS: PCP Nurse Practitioner Family; Referring Provider Nurse Practitioner Family; Visit Provider Surgery | DX: M06.9 Rheumatoid arthritis, unspecified (principal); M06.30 Rheumatoid nodule, unspecified site | CPT/HCPCS: 99204 ==

== ENCOUNTER → 2023-08-16 08:25 | Outpatient (BNVA) | payer MEDICARE, SELFPAY | PROVIDERS: PCP Nurse Practitioner Family; Referring Provider Surgery; Visit Provider Student in an Organized Health Care Education/Training Program | DX: M06.322 Rheumatoid nodule, left elbow (principal) | CPT/HCPCS: 73080; 73130; 99204 ==

== ENCOUNTER 2023-10-06 07:55 | Day surgery (SDC) | payer MEDICARE, SELFPAY ==
[2023-10-06] VITALS (11 sets, daily range): BP systolic 126–148; BP diastolic 67–97; PULSE 70–98; RESP 16–18; TEMP 36.1–36.8; O2SAT 95–100; BMI 23.6
--- NOTE | 2023-10-06 08:17 | W.PM.OPSFHP ---
Same Day Surgery H&P Indication for Procedure/HPI DATE OF PROCEDURE: October 06, 2023 CHIEF COMPLAINT/INDICATIONFOR SURGICAL PROCEDURE: Rheumatoid nodules of the left elbow, left forearm left thumb left index finger PREOP DIAGNOSIS: Rheumatoid nodules left elbow left forearm left thumb left index PLANNED PROCEDURE: Operation Date: 10/06/23 09:25 Proposed Procedures p Left elbow mass excision, left forearm mass excision, left thumb mass excision , left index finger mass excision(Left) - Gokul Escamilla DO Medications/Allergies* Home Medications Medication Instructions Recorded Confirmed Type lisinopril 10 mg tablet 10 mg PO DAILY 10/22/22 10/06/23 History Allergies/Adverse Reactions Allergy/AdvReac Type Severity Reaction Status Date / Time No Known Allergies Allergy Verified 10/06/23 08:13 Pertinent History/Comorbid Conditions* Medical History (Updated 06/20/23 @ 10:49 by Danny Hutchinson DO) Rheumatoid arthritis Social History Smoking and tobacco/nicotine status: current every day tobacco/nicotine user Pertinent Exam Findings alert, oriented x 3, operative site marked and procedure specific exam findings Please refer to detailed orthopedic examination on 08/16/2023: Left upper extremity exam: -Palpable mobile mass over left elbow olecrannon -Palpable mobile mass over dorsal and ulnar forearm -Multiple palpable nodules over left index finger DIP joint -Multiple palpable nodules over left thumb -Tender over A1 clarisa of left ring finger -Mechanical triggering of left ring finger -Tender over A1 clarisa of left index finger -Mechanical triggering of left index finger -Negative Tinel's at elbow and wrist Right upper extremity exam: -Large 7cm x 2cm soft mobile cyst/nodule on dorsal ulnar wrist -Palpable mobile cyst/nodule over dorsal middle finger MP joint -Palpable mobile cyst/nodule over dorsal index finger -Palpable mobile cyst/nodule right middle finger volar DIP joint -Palpable mobile mass over right elbow olecrannon -Negative Tinel's at elbow and wrist Recommendations Surgery/Procedure today Other Plans: Plan to proceed to the OR today for left elbow mass/cyst excision, left forearm mass/cyst excision, left thumb mass/cyst excision, left index finger mass/cyst excision. She understands the ins and outs procedure the risk benefits complication alternatives surgery and through shared decision make elects proceed with surgical intervention all questions answered at this time. Coding Level of Care Code Acute Code for Gerardo Barba
[2023-10-06] MEDS: sodium chloride 0.9% 1,000 ML 30 ML IV (08:35)
[2023-10-06] MEDS: scopolamine 1.5 Patch 1 PATCH TRANSDERMA (08:46)
[2023-10-06] MEDS: acetaminophen 1,000 MG/100 ML PIGGYBACK 400 MG IV (08:46)
[2023-10-06] MEDS: ketorolac 30 mg/mL INJ IVP (08:46)
--- NOTE | 2023-10-06 09:13 | ECG_ITS ---
[facility] Test Date: 2023-10-06 Pat Name: Marcia Alvraado Department: Room: Gender: Female [employer]yer: : 1955 Requested By: Ke Bean Order Number: [id number] Pruett MD: Messi Jacques M.D. Measurements Intervals [place] Rate: 66 P: 73 OK: 175 QRS: 64 QRSD: 84 T: 56 QT: 391 QTc: 412 Interpretive Statements SINUS RHYTHM WITH SINUS ARRHYTHMIA No previous ECG available for comparison Electronically Signed On 10-06-2023 18:30:39 CDT by Messi Jacques M.D. [email or web address]
--- NOTE | 2023-10-06 09:30 | ANES.PROC ---
Anesthesia Procedures Procedure/Date: 10/06/23 Nerve Block ^: Nerve Block 1: Main Anesthesia: other Time Out Performed: Yes Consent: requested by attending/covering physician and from patient Nerve block location: supraclavicular Anesthesia monitors applied: pulse oximetry, EKG, BP cuff and oxygen Nerve block position: semi sitting Anesthetic Used: ropivicaine 0.5% Amount of anesthesia used (mL): 30 Ultrasound used to: recognize landmarks Nerve Stimulator Used?: Yes Interscalene/Femoral BLK: 4 stimuplex 21 g needle used for position and inplane approach Injection: neg aspiration of heme Patient Tolerated Procedure: well Complications: none Additional Comments: decadron 4mg added to block
--- NOTE | 2023-10-06 09:43 | P.ANESASSM_ITS ---
Pre-Anesthetic Assessment Height/Weight: Height 5 ft 5 in Weight 142 lb Temp Pulse Resp BP Pulse Ox O2 Del Method O2 Flow Rate 98.2 F 70 16 142/97 100 Nasal Cannula 2 10/06/23 08:10 10/06/23 09:30 10/06/23 08:10 10/06/23 08:10 10/06/23 09:30 10/06/23 09:30 10/06/23 09:30 Preop Diagnosis: Rheumatoid nodules left elbow left forearm left thumb left index Operation Date: 10/06/23 09:25 Proposed Procedures p Left elbow mass excision, left forearm mass excision, left thumb mass excision , left index finger mass excision(Left) - Gokul [place], DO Last intake: Intake Last Liquid Date 10/05/23 Last Liquid Time 23:40 Last Solid Date 10/05/23 Last Solid Time 15:00 Social Tobacco Exam alert, oriented x 3 and regular rate & rhythm Airway Submandibular: within normal limits Cervical ROM: within normal limits Mallampati: Class I Dentition: false Anesthetic Plan ASA status: 2 Anesthesia: MAC and Regional (specify below) Other: No prior issues with anesthesia NPO since midnight Current smoker Patient states heart skips a beat occasionally, EKG showing sinus rhythm today Previous labs have all been acceptable for surgery METs greater than 4 Plan for MAC anesthesia with PNB Medications/Allergies Home Medications Medication Instructions Recorded Confirmed Last Taken Type lisinopril 10 mg tablet 10 mg PO DAILY 10/22/22 10/06/23 10/05/23 History Allergies Allergy/AdvReac Type Severity Reaction Status Date / Time No Known Allergies Allergy Verified 10/06/23 08:13 Current Medications Generic Name Dose Route Start Last Admin Trade Name Terryq PRN Reason Stop Dose Admin Sodium Chloride 1,000 mls @ 30 mls/hr 10/06/23 08:30 10/06/23 08:35 Sodium Chloride 0.9% IV 10/07/23 08:29 30 mls/hr .Q24H SCOTT Administration PFSH Anesthesia Medical History Rheumatoid arthritis Social History Smoking and tobacco/nicotine status: current every day tobacco/nicotine user Data Anesthesia Cardiac Studies: No Data to Display
[2023-10-06] MEDS: ceFAZolin 2,000 MG in sodium chloride 0.9% (plus) 50 ML 100 MG IV (09:48)
--- NOTE | 2023-10-06 12:12 | ANE.PACU2 ---
Inpatient post-anesthesia follow up: Airway intact: Yes Vital signs: Temperature 97.6 F Pulse Rate 78 Respiratory Rate 18 Blood Pressure 148/67 Pulse Oximetry 98 Oxygen Delivery Me thod Room Air Oxygen Flow Rate 6 Fraction of Inspir ed Oxygen Hydration adequate: Yes Nausea and vomiting: Yes Pain level: 1 Mental status: Baseline
--- NOTE | 2023-10-06 13:02 | W.PM.BPON ---
Date of Procedure: 10/06/2023 Surgeon: Gokul Escamilla DO Inspector Golf Ball(s): None Procedure(s) performed: Left elbow mass excision and olecranon bursectomy Left proximal forearm mass excision Left thumb mass excision Left index finger radial side mass excision Left index finger ulnar side mass excision Findings of the procedure(s): Patient was found to have left elbow mass and rheumatoid nodule over the olecranon bursa and underwent excision and bursectomy, as well as excision of left forearm thumb mass and the 2 masses on the index finger without issues or complications placed in a bulky soft dressing will follow-up in the office in 2 weeks Estimated blood loss: 10 mL Specimen(s) removed: Left elbow mass excision, left proximal forearm mass excision left thumb mass excision, left index finger radial side mass excision left index finger ulnar side mass excision Post-operative diagnosis: Left upper extremity multiple rheumatoid nodules of the left elbow left proximal forearm left thumb as well as 2 of the left index finger
--- NOTE | 2023-10-06 13:04 | P.OP_ITS ---
Operative Report Date of procedure: October 06, 2023 Surgeon: Gokul Escamilla DO Procedure: Preoperative diagnosis: Rheumatoid nodules of the left elbow, left forearm left thumb left index finger Postoperative diagnosis Left upper extremity multiple rheumatoid nodules of the left elbow, left proximal forearm, left thumb, 2 masses of the left index finger Procedure Left elbow mass excision and olecranon bursectomy (3.4 cm x 2.4 cm x 1.6 cm) Left proximal forearm mass excision (2.9 cm x 1.7 cm x 1.2 cm) Left thumb mass excision (1.8 cm x 1.3 cm x 0.7 cm) Left index finger radial side and ulnar side mass excisions(totaling= 2.2 cm x 1.3 cm x 0.4 cm) Specimens removed/disposition: Left elbow mass sent for path Left proximal forearm mass sent for path Left thumb mass sent for path Left index finger radial side mass sent for path Left index finger ulnar side mass sent for path Surgeon: Gokul Escamilla DO Estimated blood loss: 10mL Tourniquet time 88 minutes IV fluids: See anesthesia record Complications: None Findings: See operative report narrative Condition: stable Disposition: same day Brief History: Patient's been worked up in the outpatient setting and findings consistent with preoperative diagnosis.? Patient has a multiple rheumatoid nodules throughout the left upper extremity particularly at the left elbow the left proximal forearm the left thumb as well as a radial side and ulnar sided mass of the left index finger. Patient has attempted conservative treatment and this has become significantly painful.?We talked about treatment options as far as nonoperative and operative intervention.? At this point time patient like a more permanent solution given these are palpable rheumatoid nodules and as result through shared decision making we agreed to proceed with a left elbow mass/cyst excision, left forearm mass/cyst excision, left thumb mass/cyst excision, left index finger mass/cyst excision.? Patient understands risk benefits complication alternatives surgical nonsurgical treatment options.? Understanding risk of surgery patient agrees to proceed.? All questions answered.? Consent obtained. Procedure: Patient seen evaluate in the preoperative holding area.? Consent was signed and reviewed with patient.? All questions were answered at that time.? Correct extremity was then marked.? Patient received regional anesthesia per anesthesia department. Once seen evaluated by anesthesia patient was then brought back to the operative suite.? Patient was then placed in supine position all bony prominences well-padded patient was properly secured to the bed.? An armboard was then applied for the Left upper extremity.? A nonsterile tourniquet was applied to the Left upper extremity arm.? Patient then underwent anesthesia per the anesthesia department.? Once appropriately anesthetized the Left upper extremity was then prepped and draped in standard orthopedic fashion.? Final timeout performed.? Patient received appropriate preoperative antibiotics. Then I utilized an Esmarch tourniquet to exsanguinate the Left upper extremity to 250 mmHg Initially started off with the left elbow directly over the posterior elbow. Patient had a prominent rheumatoid nodule over the olecranon. I did a curvilinear incision around this area I immediately encountered the rheumatoid nodule. I then subsequently utilized Littler dissection scissors as well as sharp scalpel incision to dissect and mobilize circumferentially around the rheumatoid nodule as well as to dissect out the olecranon bursa. At this point in time I then subsequently mobilized this directly off of the olecranon and triceps tendon as it inserts on the proximal ulna. Care was made not to injure the tendinous insertion and the entirety of the rheumatoid nodule and olecranon bursa was excised to its entirety and sent for pathology. Size of the mass was 3.4 cm x 2.4 cm x 1.6 cm. This is then thoroughly irrigated and a wet Ray-Xiomy was placed in the wound bed. Next I then started with the proximal forearm there was a small nodule over the proximal aspect of the forearm a direct longitudinal incision was then subsequently made sharp scalpel incision was made through skin subcutaneous tissue immediately encountered the rheumatoid appearing nodule. This nodule dissected directly onto the fascia subsequently dissected with dissection scissor circumferentially around this and then transected this at the base with bipolar electrocautery and sent for pathology. Size of this mass was 2.9 cm x 1.7 cm x 1.2 cm. this was then thoroughly irrigated and a wet Ray-Xiomy was placed in the wound bed Next my attention was turned towards the left thumb. The left thumb patient had a large palpable rheumatoid nodule at the distal aspect distal to the IP joint of the left thumb more on the ulnar side of the digit. A direct longitudinal incision was made over this and subsequently dissected out the rheumatoid nodule to its entirety and sent this for pathology. Size of the nodule was 1.8 cm x 1.3 cm x 0.7 cm. patient digital nerve was right deep to the rheumatoid nodule this was dissected out and protected throughout the case. Irrigation was then performed and this completed the removal of the left thumb nodule. Next my attention was turned towards the left index finger patient had 2 palpable nodule prominences 1 on the radial side and ulnar side at the level of the DIP joint. I for started with the radial side a direct longitudinal mid lateral incision was then subsequently made I subsequently identified and immediately the nodule and subsequently this was dissected out to its entirety with care finding be digital nerve proximally at this level there was starting to be a network of branches I did have to dissect off subcutaneous branches off of the nodule as this is adhered to the nodule. Neurovascular bundle was protected throughout the case and the nodule was dissected to its entirety and excised with bipolar electrocautery at the base and sent for pathology. I subsequently then had an additional nodule on the ulnar side of the digit that could not be encompassed by simply 1 incisions I had to make an additional ulnar-based mid lateral incision at the level of the DIP joint straight longitudinal incision was made over the nodule in the ulnar side and immediately encountered the rheumatoid appearing mass/nodule and I subsequently dissected out the neurovascular bundle which was protected throughout the case once again there was a network of subcutaneous branches that had to be dissected off of the nodule as it was scarred and here to this. The neurovascular bundle was protected out the case nodules dissected to its entirety excised bipolar electrocautery at the base and sent for pathology. The left index finger radial and ulnar sided masses were excised and sent in 1 pathology specimen totaling size of the 2 masses as 2.2 cm x 1.3 cm x 0.4 cm. this completed removal of all the nodules I then subsequently thoroughly irrigated out all the wound beds. All Ray-Xiomy's were subsequently removed and final counts taken. I then thoroughly irrigated the wound bed tourniquet was deflated.? Hemostasis was satisfactory with bipolar electrocautery.? I then closed the incision in layered fashion with 3-0 Vicryl suture subcutaneously of the proximal incisions and then closed each incision site with interrupted nylon suture for all the skin incisions. Xeroform over the incisions 4 x 4's ABD soft roll and a long- arm splint was applied.? Patient was then awakened from anesthesia and taken back in stable condition. Disposition: Patient taken back in stable condition recovering well.? Patient will receive appropriate discharge instructions as well as pain medication postoperatively.? Patient placed in a splint.? We will follow-up with in the orthopedic office in 2 weeks.? Patient understands of any questions or concerns and contact the office.
== END 2023-10-06 13:05 | disposition home or self-care (01) ==
PROVIDERS: PCP Nurse Practitioner Family; Visit Provider Student in an Organized Health Care Education/Training Program
PROC: (CPT 11403; principal; 2023-10-06 09:25)
DX: M06.39 Rheumatoid nodule, multiple sites (principal); F17.200 Nicotine dependence, unspecified, uncomplicated; M06.9 Rheumatoid arthritis, unspecified
CPT/HCPCS: 11403; 11404; 11422; 11423; 12044; 24105; 88304; 88307; 88311; 93005; J0131; J0690; J1885; J2704; J7030

== ENCOUNTER 2023-10-14 08:57 | Emergency (ER) | payer MEDICARE, SELFPAY ==
[2023-10-14 09:05] VITALS: BP 126/76; PULSE 108; RESP 16; TEMP 36.4; O2SAT 99; BMI 22.8
--- NOTE | 2023-10-14 09:43 | XR_ITS ---
WS: [id number] Exam: XR hip RT 2-3V wo/w pel* [id number] Date/Time of Exam: 10/14/2023 9:46 AM Reason For Exam: pain, one view pelvis too please No fracture or dislocation. Mild degenerative change of the acetabulum. The pelvis is intact. Probabl e calcified uterine fibroids seen in the central pelvis. XR/XR hip RT 2-3V wo/w pel* [id number] IMPRESSION: 1. Mild degenerative changes RIGHT hip. No fracture or other significant findin g.
--- NOTE | 2023-10-14 09:44 | ED_ITS ---
HPI - Extremity Problem 2 General: Chief complaint: Extremity Problem,Nontraumatic Stated complaint: R hip pain and low back Time Seen by Provider: 10/14/23 09:07 Source: patient Mode of arrival: ambulatory Limitations: no limitations History of Present Illness: Patient is a nice 68-year-old female presents to ED today along with her for evaluation of right lower back and right hip pain. Symptoms have been present for approximately a month. No known injury or trauma. She feels like it starts in her right lower back and radiates around into the right hip and down the anterior aspect of her right thigh and right bates. She is ambulatory here with the help of a cane. She has been utilizing massage therapy without much relief. She has not seen her primary care provider. She has not noticed any swelling to the extremity. Denies color or temperature changes. Does not complain of numbness, tingling, or loss of sensation. No saddle anesthesia or bowel/bladder dysfunction. Of note-did have surgery about a week or so ago to remove rheumatoid nodules. Her pain has not worsened/changed following surgery. MD Complaint: extremity pain and joint pain Onset (ago): month(s) Pain Consistency: constant Location: right and lower extremity (hip) Radiation: none Relieving factors: nothing Exacerbating factors: range of motion, weight bearing and walking Associated symptoms: Reports no associated symptoms; Deny chest pain or fever(s) Related Data Home Medications Medication Instructions Recorded Confirmed lisinopril 10 mg tablet 10 mg PO DAILY 10/22/22 10/14/23 acetaminophen 500 mg tablet 500 mg PO Q6H PRN Pain 10/14/23 10/14/23 hydrocodone 5 mg-acetaminophen 325 1 tab PO Q6H PRN Pain 10/14/23 10/14/23 mg tablet oxycodone 5 mg tablet 5 mg PO Q4H PRN Pain 10/14/23 10/14/23 tramadol 50 mg tablet 50 mg PO Q6H PRN Pain 10/14/23 10/14/23 Allergies Allergy/AdvReac Type Severity Reaction Status Date / Time No Known Allergies Allergy Verified 10/14/23 09:13 Review of Systems 2 Const: Denies: fever(s), chills, body aches, fatigue or malaise Card: Denies: chest pain Resp: Denies: dyspnea GI: Denies: abdominal pain, nausea, vomiting, diarrhea or change in bowel habits : Denies: flank pain, difficulty voiding, dysuria, urinary frequency, urinary urgency or urinary hesitancy Musc: Reports: back pain and joint pain (R hip); Denies: neck pain, extremity swelling, joint swelling, joint redness or joint warmth Neuro: Reports: difficulty walking (secondary to hip pain); Denies: numbness in extremities, weakness in extremities or sensory changes PFSH ED 2 PFSH: Medical History Rheumatoid arthritis Social History Smoking and tobacco/nicotine status: current every day tobacco/nicotine user Physical Exam 2 Const: COMMON NORMALS: no acute distress, average body habitus, patient oriented x3, no limitations, healthy appearing, alert and well nourished G ENERAL APPEARANCE: cooperative ORIENTATION/CONSCIOUSNESS: Yes awake, Yes oriented to person, Yes oriented to place and Yes oriented to time Resp: COMMON NORMALS: normal respiratory effort and clear to auscultation bilaterally AUSCULTATION: clear to auscultation bilaterally Cardio: COMMON NORMALS: regular rate and regular rhythm RATE: regular rate RHYTHM: regular rhythm : COMMON NORMALS: Yes no CVA tenderness BLADDER/KIDNEY EXAM: Yes no CVA tenderness Back/Pelvis: COMMON NORMALS: no CVA tenderness, no thoracic nor lumbar tenderness and straight leg raise negative bilaterally THORACIC SPINE/UPPER BACK: No thoracic spinal tenderness LUMBAR SPINE/LOWER BACK: No lumbar spinal tenderness and Yes paraspinal muscle tenderness PELVIS: Yes buttocks normal SACROILIAC JOINTS: Yes SI joint(s) abnormal SI joint details: tender to palpation SACRUM: no tenderness COCCYX: no tenderness BACK IMAGE (FEMALE): 1. TTP Extremity: COMMON NORMALS: normal to inspection, full ROM, capillary refill normal, no joint enlargement, no clubbing, cyanosis or edema, no calf tenderness and no pedal edema GENERAL: Yes normal exam except as noted OTHER: DP/PT pulses palpated, feet are warm, cap refill normal Neuro: COMMON NORMALS: patient oriented x3, moves all extremities, no focal motor deficits and no sensory deficits noted SENSORIUM/ORIENTATION: Yes alert, Yes oriented to person, Yes oriented to place and Yes oriented to time Skin: COMMON NORMALS: no rashes or lesions noted GENERAL SKIN EXAM: no rashes or lesions noted Course 2 Vital Signs: Vital signs: Vital Signs Temperature 97.6 F 10/14/23 09:05 Pulse Rate 79 10/14/23 10:30 Respiratory Rate 16 10/14/23 09:05 Blood Pressure 134/73 10/14/23 10:30 Pulse Oximetry 96 10/14/23 10:30 Oxygen Delivery Me thod Room Air 10/14/23 10:30 MDM - Extremity (Nontraumatic) Medical Decision Making DDx includes: arthritis/dengerative changes involving hip, hip impingement, lumbar radiculopathy, sciatica. No concern at this time for ischemic limb, DVT, acute cord compression, or other emergent etiology. She was given IM Toradol/Dexamethasone. Recommend she follow up with PCP. Medical Records I reviewed the patient's medical records. Lab Data Radiology Impressions Hip/Pelvis X-Ray 10/14/23 09:43 IMPRESSION: 1. Mild degenerative changes RIGHT hip. No fracture or other significant finding. All radiology interpretation(s) finalized by discharge Discharge Plan Discharge Patient Disposition: Home Clinical Impression: Acute lumbar radiculopathy Condition: Stable Prescriptions: No Action lisinopril 10 mg tablet 10 mg PO DAILY tramadol 50 mg tablet 50 mg PO Q6H PRN (Reason: Pain) hydrocodone-acetaminophen 5-325 mg tablet 1 tab PO Q6H PRN (Reason: Pain) acetaminophen 500 mg Tablet 500 mg PO Q6H PRN (Reason: Pain) oxycodone 5 mg tablet 5 mg PO Q4H PRN (Reason: Pain) Discharge Orders: Discharge ED (Routine); Ordered 10/14/23 Ordered By: Lizett Pierson Referrals: Monique Pimentel FNP [Primary Care Provider] - Patient Instructions: Lumbar Radiculopathy (ED) Activity Restrictions/Additional Instructions: As we discussed, you were given a shot of anti-inflammatory and steroid medication here to attempt to help with your discomfort. I would like you to follow-up with your primary care provider for further evaluation and treatment. Coding Level of Care Code ED Engineer [employer] for Gerardo Barba
[2023-10-14] MEDS: ketorolac 30 mg/mL INJ IM (10:09)
[2023-10-14 10:30] VITALS: BP 134/73; PULSE 79; O2SAT 96
[2023-10-14] MEDS: dexamethasone 10 mg/mL INJ 8 MG IM (10:33)
[2023-10-14 10:52] VITALS: BP 131/69; PULSE 77; RESP 16; O2SAT 96
== END 2023-10-14 10:53 | disposition home or self-care (01) ==
PROVIDERS: Emergency Provider Physician Assistant; PCP Nurse Practitioner Family
DX: M54.16 Radiculopathy, lumbar region (principal); Z72.0 Tobacco use
CPT/HCPCS: 73502; 96372; 99284; J1100; J1885

== ENCOUNTER → 2023-10-20 13:09 | Outpatient (BNVA) | payer MEDICARE, SELFPAY | PROVIDERS: PCP Nurse Practitioner Family; Visit Provider Physician Assistant | DX: Z98.890 Other specified postprocedural states (principal); M06.30 Rheumatoid nodule, unspecified site | CPT/HCPCS: 99024 ==

== ENCOUNTER 2023-10-25 07:50 | Outpatient (CLI) | payer MEDICARE, SELFPAY ==
--- NOTE | 2023-10-25 07:56 | MR_ITS ---
WS: [id number] MRI LUMBAR SPINE NONCONTRAST HISTORY: LOW BACK PAIN WITH sciatica, right-sided. COMPARISON: Prior CT abdomen/pelvis 10/22/2022 reviewed. TECHNIQUE: Sagittal and axial multisequence imaging is submitted. Mild increase in thoracic kyphosis. Increased in the lumbar lordosis. 5 nonrib-bearing vertebral bodies are identified. There is an addit ional S1 vertebral body which is lumbarized. Mild disc space narrowing. L5 anterolisthesis by 4 mm. There are a few scattered hemangiomas includin g L1 and L3. Conus terminates normally at L1-2 disc level. L1-L2: Mild annular disc bulging with osteophytic ridging. Mild bilateral foraminal stenosis. L2-L3: Diffuse osteophytic ridging encroaching upon the ventral thecal sac and subarticular recesses. Complete effacement of CSF. Severe central with bilateral subarticular recess and moderate foraminal stenosis. L3-L4: Diffuse annular disc bulging with moderate ligamentum flavum and facet arthritis. Mild encroac hment upon the subarticular recesses. Moderate RIGHT and mild LEFT foraminal stenosis. Mild central a nd subarticular recess stenosis. L4-L5: Moderate central, bilateral subarticular recess and foraminal stenosis. L5-S1: Severe central, bilateral subarticular recess and moderate foraminal stenosis. Marked facet ar thritis. Significant encroachment upon the traversing S1 nerve roots. S1-S2: Small rudimentary disc. Numerous retroperitoneal masses are identified. The largest mass in the RIGHT retroperitoneum measure s 7.6 x 6.4 cm and is causing medial displacement of the psoas muscle. This mass may be encroaching u rand some of the nerve roots due to its close position to the spine. Additional mass in the region of the LEFT adrenal gland 2.2 x 3.6 cm. Soft tissue mass just lateral to the RIGHT ilium 2.2 x 2.7 cm. T here is destruction and involvement of the RIGHT ilium. Bony expansile tumor noted. Abnormal signal i n the RIGHT iliacus muscle MR/MR lumbar spine wo con* [id number] IMPRESSION: 1. Mild increase in the lumbar lordosis with L5 anterolisthesis by 4 mm. 2. 5 nonrib-bearing vertebral bodies and lumbarized S1. 3. L2-3: Severe central with bilateral subarticular recess and moderate forami nal stenosis. 4. L3-4: Moderate RIGHT and mild LEFT foraminal stenosis. Mild central and sub articular recess stenosis. 5. L4-5: Moderate central, bilateral subarticular recess and foraminal stenosi s due to disc and osteophyte disease. 6. L5-S1: Severe central, bilateral subarticular recess and foraminal stenosis . 7. Multiple neoplastic appearing masses are identified within the RIGHT retrop eritoneum with the largest measuring 7.6 x 6.4 cm displacing the psoas muscle. Metastatic soft tissue masses with an additional expansile osseous metastatic s ite in the RIGHT ilium. 8. Highly suspect LEFT adrenal metastatic mass. 9. Abnormal signal in the RIGHT iliacus muscle. 10. Findings are highly suspicious for metastatic renal cell carcinoma. Follow -up with oncology.
== END 2023-10-25 07:51 | disposition home or self-care (01) ==
PROVIDERS: PCP Nurse Practitioner Family; Visit Provider Nurse Practitioner Family
DX: M54.40 Lumbago with sciatica, unspecified side (principal); M54.10 Radiculopathy, site unspecified; M40.204 Unspecified kyphosis, thoracic region; M40.56 Lordosis, unspecified, lumbar region; M43.16 Spondylolisthesis, lumbar region; M25.78 Osteophyte, vertebrae; M99.63 Osseous and subluxation stenosis of intervertebral foramina of lumbar region; M47.896 Other spondylosis, lumbar region; D20.0 Benign neoplasm of soft tissue of retroperitoneum; D44.12 Neoplasm of uncertain behavior of left adrenal gland; R93.7 Abnormal findings on diagnostic imaging of other parts of musculoskeletal system
CPT/HCPCS: 72148